=== PATIENT | female | born 1990 | race Caucasian/White ===

== ENCOUNTER 2024-05-17 20:18 | Emergency (ER) | payer BC ==
[~2024-05-17] VITALS: Ht 172.7 cm; Wt 72.6 kg
[2024-05-17] MEDS ORDERED: CLINDAMYCIN HC300 MG PO (22:39)
[2024-05-17] MEDS ORDERED: CLINDAMYCIN HCL 300 MG CAPSULE PO ONE (22:40)
== END 2024-05-17 21:40 | disposition left against medical advice (07) ==
LOC: ED 20:18
DX: K04.7 Periapical abscess without sinus (principal); K02.9 Dental caries, unspecified